=== PATIENT | male | born 1980 | race Caucasian/White ===

== ENCOUNTER 2021-01-19 11:11 | Outpatient (CLI) | payer OTHER, SELFPAY ==
[2021-01-19 11:10] VITALS: BP 149/94; PULSE 98; RESP 20; TEMP 36.9; O2SAT 99; BMI 32.8
[2021-01-19 11:47] VITALS: BP 137/86; PULSE 87; RESP 20; TEMP 36.8; O2SAT 95
[2021-01-19 12:41] VITALS: BP 133/87; PULSE 83; RESP 16; TEMP 36.9; O2SAT 96
== END 2021-01-19 11:12 | disposition home or self-care (01) ==
LOC: OPS 11:16
PROVIDERS: Visit Provider Nurse Practitioner Family
DX: U07.1 COVID-19 (principal)
CPT/HCPCS: 96365

== ENCOUNTER → 2021-09-14 09:43 | Outpatient (BNVA) | payer OTHER, SELFPAY | PROVIDERS: Visit Provider Clinical Nurse Specialist Adult Health | DX: I10 Essential (primary) hypertension (principal); E78.5 Hyperlipidemia, unspecified; R20.0 Anesthesia of skin; R20.2 Paresthesia of skin | CPT/HCPCS: 80053; 80061; 82306; 85025 ==

== ENCOUNTER → 2022-01-31 11:22 | Outpatient (BNVA) | payer OTHER, SELFPAY | PROVIDERS: PCP Clinical Nurse Specialist Adult Health; Visit Provider Clinical Nurse Specialist Adult Health | DX: R20.2 Paresthesia of skin (principal); R35.0 Frequency of micturition; G47.00 Insomnia, unspecified | CPT/HCPCS: 81000; 82306; 82607; 84153 ==

== ENCOUNTER → 2022-02-01 09:13 | Outpatient (BNVA) | payer OTHER, SELFPAY | PROVIDERS: PCP Clinical Nurse Specialist Adult Health; Visit Provider Clinical Nurse Specialist Adult Health | DX: R35.0 Frequency of micturition (principal) | CPT/HCPCS: 81000; 87086 ==

== ENCOUNTER 2022-06-08 08:58 | Observation (INO) | payer OTHER, SELFPAY ==
[2022-06-08] VITALS (26 sets, daily range): BP systolic 115–151; BP diastolic 52–100; PULSE 68–88; RESP 12–19; TEMP 36.2–36.4; O2SAT 93–98
[2022-06-08 10:50] LABS: Basophils # 0.1 10^3/uL (0.0-0.1); Eosinophils # 0.3 10^3/uL (0.0-0.8); Eosinophils % 2.8 %; Hematocrit 51.2 % (42.0-52.0); Lymphocytes # 2.3 10^3/uL (0.8-4.8); Lymphocytes % 24.2 %; Mean Corpuscular HGB Conc 33.2 g/dL (30.0-36.0); Mean Corpuscular Hemoglobin 30.5 pg (28.0-34.0); Mean Corpuscular Volume 91.9 fl (80-94); Monocytes # 0.8 10^3/uL (0.2-0.9); Monocytes % 8.3 %; Neutrophils # 5.92 10^3/uL (1.8-7.7); Neutrophils % 63.4 %; Nucleated Red Blood Cells % 0 %; Platelet Count 308 10^3/cmm (130-400); Red Blood Count 5.57 10^6/uL (4.1-5.3); Red Cell Distribution Width 12.9 % (12.1-15.1); White Blood Count 9.3 10^3/uL (4.0-10.0)
[2022-06-08 11:06] LABS: Alanine Aminotransferase 47 U/L (0-41); Albumin Level 4.5 g/dL (3.5-5.2); Alkaline Phosphatase 103 U/L (40-130); Anion Gap 15.3 (5-19); Aspartate Amino Transferase 23 U/L (0-40); Blood Urea Nitrogen 9 mg/dL (6-20); Calcium 9.1 mg/dL (8.5-10.5); Carbon Dioxide 25 mmol/L (22-29); Chloride 100 mmol/L (98-107); Globulin 3.3 g/dL (1.3-4.6); Glomerular Filtration Rate 81.2 mL/min (90-130); Glucose 100 mg/dL (65-115); Lipase 24 U/L (13-60); Osmolality Calculated 281 mOsm/kg (285-295); Potassium 4.3 mmol/L (3.5-5.1); Sodium 136 mmol/L (136-145); Total Bilirubin 0.8 mg/dL (0.15-1.2); Total Protein 7.8 g/dL (6.6-8.7)
--- NOTE | 2022-06-08 11:16 | CT_ITS ---
WS: [id number] CT ABDOMEN PELVIS TECHNIQUE: Contrast-enhanced CT of the abdomen and pelvis with coronal and sagittal reformatted image s. CLINICAL INFORMATION: RLQ abd pain COMPARISON: None. DLP: 1156.[address] scans at [facility] use at least one of these dose optimization techniques: automated e xposure control; mA and/or kV adjustment per patient size (includes targeted exams where dose is matc hed to clinical indication); or iterative reconstruction. FINDINGS: Diffuse inflammatory stranding and edema about the appendix RIGHT lower quadrant with associated appe ndicolith. Appendicolith measures 5 mm. Findings compatible with acute appendicitis. No perforation o r drainable fluid collections. No free air. A few reactive lymph nodes RIGHT lower quadrant. Diffuse fatty infiltration liver. Normal portal vein and splenic vein. Normal spleen. Fatty atrophy o f the pancreas. Adrenal glands are normal. Normal renal parenchyma enhancement. No hydronephrosis. No rmal GE junction. Lung bases are well aerated. A few calcified granulomas in the lung bases. Normal c aliber abdominal aorta. Indeterminate small enhancing cortical lesion lower pole LEFT kidney measurin g 14 mm. This does not appear entirely cystic and recommend further evaluation with ultrasound. Prostate measures 5.1 cm prominent for a patient this age. Correlation PSA. Sigmoid diverticulosis. No evidence of acute diverticulitis. Fat-containing umbilica l hernia. CT/CT abdomen pelvis w con* [id number] IMPRESSION: 1. Acute appendicitis in the RIGHT lower quadrant with associated appendicolit h. No perforation, free fluid, or abscess. 2. Sigmoid diverticulosis. No evidence of acute diverticulitis. 3. Prominent prostate for patient this age measuring 5.1 CM. Recommend correla tion PSA. 4. Indeterminate small enhancing cortical lesion lower pole LEFT kidney measur ing 14 mm. This does not appear entirely cystic and recommend further evaluatio n with ultrasound. 5. No other acute findings Notified AUTUMN Rizzo at 06/08/2022 1:09 PM.
[2022-06-08 11:18] LABS: Add Urine Microscopic? NO; Charge for UA Resulting for Rev
--- NOTE | 2022-06-08 11:19 | W.ED.ABDPA2 ---
Documented by User: Allie Perdomo [employer]-C 06/08/22 13:10 HPI - Abdominal Pain General: Chief Complaint: Abdominal Pain Stated Complaint: [place] sent for possible appy Time Seen by Provider: 06/08/22 09:22 History of Present Illness: Patient is in today for right lower quadrant abdominal pain he reports that this started yesterday with no injury. He reports that if he is sitting still he has 0 pain but any movement he is hurting a lot. He reports off-and-on nausea no vomiting. He denies any fever. He reports that he often has chills but he does not think that is new. He denies any difficulty urinating, pain with urination, hesitancy, blood in his urine. He denies diarrhea or constipation. He did go to his primary care provider this morning and they felt like he needed to be evaluated further for an appendicitis. He does have his appendix he has never had a renal stone. Associated Symptoms: Denies chills, dysuria, fever(s) and syncope Review of Systems Const: Denies: fever(s), chills or body aches Eyes: Denies: change in vision or blurry vision ENMT: Denies: throat pain Card: Denies: chest pain, palpitations, irregular heart rhythm, lightheadedness or syncope Resp: Denies: dyspnea, productive cough or non-productive cough : Denies: flank pain, dysuria, urinary frequency, urinary urgency or urinary hesitancy Musc: Denies: neck pain or back pain Neuro: Denies: headache(s), numbness in extremities or weakness in extremities PFSH ED PFSH: Medical History HTN (hypertension) with goal to be determined Hyperlipidemia Insomnia Paresthesia Seasonal allergies Vitamin B12 deficiency Vitamin D deficiency Surgical History History of wisdom tooth extraction Family History Father Psychiatric illness Dementia onset 56 years of age. 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 Physical Exam Const: COMMON NORMALS: no acute distress, patient oriented x3 and alert GENERAL APPEARANCE: cooperative ORIENTATION/CONSCIOUSNESS: Yes awake, Yes oriented to person, Yes oriented to place and Yes oriented to time Eye: COMMON NORMALS: Equal, round and reactive pupils present, EOMs intact bilaterally and conjunctivae normal CONJUNCTIVA: Yes conjunctivae normal PUPIL: Yes Equal, round and reactive pupils present Neck/C-Spine: COMMON NORMALS: full ROM Resp: COMMON NORMALS: normal respiratory effort, No retractions, No use of accessory muscles and clear to auscultation bilaterally EFFORT & INSPECTION: Yes symmetric chest movement AUSCULTATION: clear to auscultation bilaterally Cardio: COMMON NORMALS: regular rate, regular rhythm, S1 normal heart sound present and S2 normal heart sound present RATE: regular rate RHYTHM: regular rhythm HEART SOUNDS: S1 normal heart sound present and S2 normal heart sound present GI: COMMON NORMALS: Soft to palpation INSPECTION: Yes normal to inspection PALPATION: Yes Soft to palpation, Yes Tenderness to palpation present (GI) Details: RLQ, No Rebound tenderness present and Yes Other GI palpation findings present (Positive obturator sign) : COMMON NORMALS: Yes no CVA tenderness BLADDER/KIDNEY EXAM: Yes no CVA tenderness Back/Pelvis: COMMON NORMALS: no CVA tenderness Neuro: COMMON NORMALS: patient oriented x3 SENSORIUM/ORIENTATION: Yes alert, Yes oriented to person, Yes oriented to place and Yes oriented to time Psych: COMMON NORMALS: cooperative Course ED course: 1305?radiologist called and advised of acute appendicitis with appendicolith, inflammation without any evidence of fluid or perforation 1306?Dr. Waldrop was paged and advised of appendicitis. He asked that orders be placed for him and he will come by to see the patient Discussed with Dr. Greene at 1310 who agrees to assume care of patient. Vital Signs: Vital signs: Vital Signs Temperature 97.6 F 06/08/22 19:03 Pulse Rate 78 06/08/22 19:03 Respiratory Rate 18 06/08/22 19:03 Blood Pressure 117/78 06/08/22 19:03 Pulse Oximetry 97 06/08/22 19:03 Oxygen Delivery Me thod 06/08/22 19:03 Oxygen Flow Rate 6 06/08/22 18:03 MDM - Abdominal Pain Medical Decision Making Differentials include abdominal pain, appendicitis, renal stone White blood cell count is within normal limits. Patient is afebrile. Negative for CVA tenderness. Exam findings are suspicious for acute appendicitis. CT abdomen pelvis with contrast ordered?shows acute appendicitis. Dr. Waldrop is paged and advised that he would be by to see the patient. I discussed this patient with Dr. Greene who agrees to assume care. Lab Data 06/08/22 10:40 06/08/22 10:40 Labs/Radiology: Radiology Impressions Abdomen/Pelvis CT 06/08/22 11:16 IMPRESSION: 1. Acute appendicitis in the RIGHT lower quadrant with associated appendicolith. No perforation, free fluid, or abscess. 2. Sigmoid diverticulosis. No evidence of acute diverticulitis. 3. Prominent prostate for patient this age measuring 5.1 CM. Recommend correlation PSA. 4. Indeterminate small enhancing cortical lesion lower pole LEFT kidney measuring 14 mm. This does not appear entirely cystic and recommend further evaluation with ultrasound. 5. No other acute findings Notified Allie Perdomo [facility]- at 06/08/2022 1:09 PM. Laboratory Results WBC 9.3 10^3/uL (4.0-10.0) 06/08/22 10:40 RBC 5.57 10^6/uL (4.1-5.3) H 06/08/22 10:40 Hgb 17.0 g/dL (11.7-16.6) H 06/08/22 10:40 Hct 51.2 % (42.0-52.0) 06/08/22 10:40 MCV 91.9 fl (80-94) 06/08/22 10:40 MCH 30.5 pg (28.0-34.0) 06/08/22 10:40 MCHC 33.2 g/dL (30.0-36.0) 06/08/22 10:40 RDW 12.9 % (12.1-15.1) 06/08/22 10:40 Plt Count 308 10^3/cmm (130-400) 06/08/22 10:40 MPV 11.0 fL (7.4-10.4) H 06/08/22 10:40 Neut % (Auto) 63.4 % 06/08/22 10:40 Lymph % (Auto) 24.2 % 06/08/22 10:40 [place] % (Auto) 8.3 % 06/08/22 10:40 Eos % (Auto) 2.8 % 06/08/22 10:40 Baso % (Auto) 1.0 % 06/08/22 10:40 Neut # (Auto) 5.92 10^3/uL (1.8-7.7) 06/08/22 10:40 Lymph # (Auto) 2.3 10^3/uL (0.8-4.8) 06/08/22 10:40 [place] # (Auto) 0.8 10^3/uL (0.2-0.9) 06/08/22 10:40 Eos # (Auto) 0.3 10^3/uL (0.0-0.8) 06/08/22 10:40 Baso # (Auto) 0.1 10^3/uL (0.0-0.1) 06/08/22 10:40 Nucleated RBC % (auto) 0 % 06/08/22 10:40 Nucleated RBCs # 0.0 /100WBC 06/08/22 10:40 Sodium 136 mmol/L (136-145) 06/08/22 10:40 Potassium 4.3 mmol/L (3.5-5.1) 06/08/22 10:40 Chloride 100 mmol/L (98-107) 06/08/22 10:40 Carbon Dioxide 25 mmol/L (22-29) 06/08/22 10:40 Anion Gap 15.3 (5-19) 06/08/22 10:40 BUN 9 mg/dL (6-20) 06/08/22 10:40 Creatinine 1.0 mg/dL (0.7-1.2) 06/08/22 10:40 GFR Calculation 81.2 mL/min (90-130) L 06/08/22 10:40 Glucose 100 mg/dL (65-115) 06/08/22 10:40 Calculated Osmolality 281 mOsm/kg (285-295) L 06/08/22 10:40 Calcium 9.1 mg/dL (8.5-10.5) 06/08/22 10:40 Total Bilirubin 0.8 mg/dL (0.15-1.2) 06/08/22 10:40 AST 23 U/L (0-40) 06/08/22 10:40 ALT 47 U/L (0-41) H 06/08/22 10:40 Alkaline Phosphatase 103 U/L (40-130) 06/08/22 10:40 Total Protein 7.8 g/dL (6.6-8.7) 06/08/22 10:40 Albumin 4.5 g/dL (3.5-5.2) 06/08/22 10:40 Globulin 3.3 g/dL (1.3-4.6) 06/08/22 10:40 Lipase 24 U/L (13-60) 06/08/22 10:40 Urine Color Yellow (Yellow) 06/08/22 11:07 Urine Appearance Clear (CLEAR) 06/08/22 11:07 Urine pH 7 (5-7) 06/08/22 11:07 Ur Specific [place] 1.015 (1.005-1.030) 06/08/22 11:07 Urine Protein Neg (Negative) 06/08/22 11:07 Urine Glucose (UA) Norm (Normal) 06/08/22 11:07 Urine Ketones Negative (Negative) 06/08/22 11:07 Urine Blood Neg (Negative) 06/08/22 11:07 Urine Nitrate Negative (Negative) 06/08/22 11:07 Urine Bilirubin Neg (Negative) 06/08/22 11:07 Urine Urobilinogen Neg mg/dL (Negative) 06/08/22 11:07 Ur Leukocyte Esterase Negative (Negative) 06/08/22 11:07 Discharge Plan Discharge Patient Disposition: Admitted As Inpatient Admit Provider: Joaquin Waldrop Clinical Impression: Acute appendicitis Condition: Stable Discharge Diet: Advance as tolerated Discharge Activity: Resume usual activity Sign Out Sign Out Data: Patient Sign Out occurred on 06/08/22 at 13:37. Patient's care was discussed, and care was transferred from to J Carlos Greene DO. Coding Level of Care Code ED [employer] Operator for [employer] Nicholson Documented by User: J Carlos Greene DO 06/13/22 07:35 HPI - Abdominal Pain General: Chief Complaint: Abdominal Pain Stated Complaint: [place] sent for possible appy Time Seen by Provider: 06/08/22 09:22 [facility] ED PFSH: Medical History HTN (hypertension) with goal to be determined Hyperlipidemia Insomnia Paresthesia Seasonal allergies Vitamin B12 deficiency Vitamin D deficiency Surgical History History of wisdom tooth extraction Family History Father Psychiatric illness Dementia onset 56 years of age. 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 Patient is afebrile. Negative for CVA tenderness. Exam findings are suspicious for acute appendicitis. CT abdomen pelvis with contrast ordered?shows acute appendicitis. Dr. Waldrop is paged and advised that he would be by to see the patient. I discussed this patient with Dr. Greene who agrees to assume care. Patient care handoff received from Allie Perdomo continuation of ED evaluation. I personally saw and evaluated patient and reperformed rhoades portions of E/M. Patient seen and examined labs imaging reviewed patient has acute appendicitis discussed Dr. Waldrop he will take the patient to the OR for appendectomy. Medical Records I reviewed the patient's medical records. Lab Data I reviewed the patient's lab results. 06/08/22 10:40 06/08/22 10:40 Labs/Radiology: Radiology Impressions Abdomen/Pelvis CT 06/08/22 11:16 IMPRESSION: 1. Acute appendicitis in the RIGHT lower quadrant with associated appendicolith. No perforation, free fluid, or abscess. 2. Sigmoid diverticulosis. No evidence of acute diverticulitis. 3. Prominent prostate for patient this age measuring 5.1 CM. Recommend correlation PSA. 4. Indeterminate small enhancing cortical lesion lower pole LEFT kidney measuring 14 mm. This does not appear entirely cystic and recommend further evaluation with ultrasound. 5. No other acute findings Notified Allie Perdomo, [facility]- at 06/08/2022 1:09 PM. Laboratory Results WBC 9.3 10^3/uL (4.0-10.0) 06/08/22 10:40 RBC 5.57 10^6/uL (4.1-5.3) H 06/08/22 10:40 Hgb 17.0 g/dL (11.7-16.6) H 06/08/22 10:40 Hct 51.2 % (42.0-52.0) 06/08/22 10:40 MCV 91.9 fl (80-94) 06/08/22 10:40 MCH 30.5 pg (28.0-34.0) 06/08/22 10:40 MCHC 33.2 g/dL (30.0-36.0) 06/08/22 10:40 RDW 12.9 % (12.1-15.1) 06/08/22 10:40 Plt Count 308 10^3/cmm (130-400) 06/08/22 10:40 MPV 11.0 fL (7.4-10.4) H 06/08/22 10:40 Neut % (Auto) 63.4 % 06/08/22 10:40 Lymph % (Auto) 24.2 % 06/08/22 10:40 [place] % (Auto) 8.3 % 06/08/22 10:40 Eos % (Auto) 2.8 % 06/08/22 10:40 Baso % (Auto) 1.0 % 06/08/22 10:40 Neut # (Auto) 5.92 10^3/uL (1.8-7.7) 06/08/22 10:40 Lymph # (Auto) 2.3 10^3/uL (0.8-4.8) 06/08/22 10:40 [place] # (Auto) 0.8 10^3/uL (0.2-0.9) 06/08/22 10:40 Eos # (Auto) 0.3 10^3/uL (0.0-0.8) 06/08/22 10:40 Baso # (Auto) 0.1 10^3/uL (0.0-0.1) 06/08/22 10:40 Nucleated RBC % (auto) 0 % 06/08/22 10:40 Nucleated RBCs # 0.0 /100WBC 06/08/22 10:40 Sodium 136 mmol/L (136-145) 06/08/22 10:40 Potassium 4.3 mmol/L (3.5-5.1) 06/08/22 10:40 Chloride 100 mmol/L (98-107) 06/08/22 10:40 Carbon Dioxide 25 mmol/L (22-29) 06/08/22 10:40 Anion Gap 15.3 (5-19) 06/08/22 10:40 BUN 9 mg/dL (6-20) 06/08/22 10:40 Creatinine 1.0 mg/dL (0.7-1.2) 06/08/22 10:40 GFR Calculation 81.2 mL/min (90-130) L 06/08/22 10:40 Glucose 100 mg/dL (65-115) 06/08/22 10:40 Calculated Osmolality 281 mOsm/kg (285-295) L 06/08/22 10:40 Calcium 9.1 mg/dL (8.5-10.5) 06/08/22 10:40 Total Bilirubin 0.8 mg/dL (0.15-1.2) 06/08/22 10:40 AST 23 U/L (0-40) 06/08/22 10:40 ALT 47 U/L (0-41) H 06/08/22 10:40 Alkaline Phosphatase 103 U/L (40-130) 06/08/22 10:40 Total Protein 7.8 g/dL (6.6-8.7) 06/08/22 10:40 Albumin 4.5 g/dL (3.5-5.2) 06/08/22 10:40 Globulin 3.3 g/dL (1.3-4.6) 06/08/22 10:40 Lipase 24 U/L (13-60) 06/08/22 10:40 Urine Color Yellow (Yellow) 06/08/22 11:07 Urine Appearance Clear (CLEAR) 06/08/22 11:07 Urine pH 7 (5-7) 06/08/22 11:07 Ur Specific [place] 1.015 (1.005-1.030) 06/08/22 11:07 Urine Protein Neg (Negative) 06/08/22 11:07 Urine Glucose (UA) Norm (Normal) 06/08/22 11:07 Urine Ketones Negative (Negative) 06/08/22 11:07 Urine Blood Neg (Negative) 06/08/22 11:07 Urine Nitrate Negative (Negative) 06/08/22 11:07 Urine Bilirubin Neg (Negative) 06/08/22 11:07 Urine Urobilinogen Neg mg/dL (Negative) 06/08/22 11:07 Ur Leukocyte Esterase Negative (Negative) 06/08/22 11:07 Discharge Plan Discharge Patient Disposition: Admitted As Inpatient Admit Provider: Joaquin Waldrop Clinical Impression: Acute appendicitis Condition: Stable Discharge Diet: Advance as tolerated Discharge Activity: Resume usual activity Sign Out Sign Out Data: Patient Sign Out occurred on 06/08/22 at 13:37. Patient's care was discussed, and care was transferred from to J Carlos Greene DO. Coding Level of Care Code ED [employer] Operator for [employer]olson
[2022-06-08] MEDS: iohexol 350 mg/mL 500 mL Btl (per mL) IV (11:20)
[2022-06-08 11:24] LABS: Blood Urine Neg (Negative); Glucose Urine UA Norm (Normal); Ketones Urine Negative (Negative); Protein Urine Neg (Negative); Specific Gravity, Urine 1.015 (1.005-1.030); Urine Appearance Clear (CLEAR); Urine Color Yellow (Yellow); pH Urine 7 (5-7)
[2022-06-08 11:25] LABS: Bilirubin Urine Neg (Negative); Leukocyte Esterase Urine Negative (Negative); Nitrate Urine Negative (Negative); Urobilinogen Urine Neg (Negative)
--- NOTE | 2022-06-08 16:22 | ANES.PREANE2 ---
Pre-Anesthetic Assessment Height/Weight: Height 1.83 m Weight 113.398 kg Temp Pulse Resp BP Pulse Ox O2 Del Method 97.6 F 83 16 151/100 97 06/08/22 15:23 06/08/22 15:23 06/08/22 15:23 06/08/22 15:23 06/08/22 15:23 06/08/22 15:23 Operation Date: 06/08/22 16:45 Proposed Procedures p Laparoscopic Appendectomy(Not Applicable) - Joaquin Waldrop DO Familial anesthetic complications: None Was Beta Sruthi taken within 24 hours: N/A Was Clonidine taken within 24 hours: N/A Last intake: Intake Last Liquid Date 06/08/22 Last Liquid Time 07:30 Last Solid Date 06/07/22 Last Solid Time 12:00 Social Alcohol (6-12 drinks a week) and No tobacco Exam alert, oriented x 3, clear to auscultation bilaterally and regular rate & rhythm Airway Submandibular: within normal limits Cervical ROM: within normal limits Mallampati: Class III Dentition: full History/ROS No significant history except as noted and No significant complaints Pulmonary Asthma and Sleep Apnea CV/HEM Arrythmia and Hypertension None reported Hepatic None reported GI None reported Metabolic Hyperlipidemia [facility] None reported Neuropsych Neuropathy Anesthetic Plan ASA status: 2 Anesthesia: Anesthesia Evaluation and General Risk of > 500 ml blood loss (7ml/kg in children): No Medications/Allergies Home Medications Medication Instructions Recorded Confirmed Last Taken Type fluticasone propionate 45 2 puff inhalation BID #12 grams 01/19/21 06/08/22 Unknown Rx mcg-salmeterol 21 mcg/actuation HFA inhaler (Advair HFA) losartan 50 mg tablet 50 mg PO DAILY 01/19/21 06/08/22 06/07/22 History cholecalciferol (vitamin D3) 50 50 mcg PO DAILY 01/31/22 06/08/22 06/07/22 History mcg (2,000 unit) capsule levocetirizine 5 mg tablet (Xyzal) 5 mg PO DAILY 01/31/22 06/08/22 06/07/22 History folic acid 1 mg tablet 1 mg PO DAILY 02/13/22 06/08/22 06/07/22 History mecobalamin (vitamin B12) 5,000 1,000 mcg PO DAILY 02/13/22 06/08/22 06/07/22 History mcg disintegrating tablet Allergies Allergy/AdvReac Type Severity Reaction Status Date / Time No Known Allergies Allergy Verified 06/08/22 11:26 [facility] Anesthesia Medical History HTN (hypertension) with goal to be determined Hyperlipidemia Insomnia Paresthesia Seasonal allergies Vitamin B12 deficiency Vitamin D deficiency Surgical History History of wisdom tooth extraction Family History Father Psychiatric illness Dementia onset 58 years of age. 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 Data Anesthesia 06/08/22 10:40 06/08/22 10:40 Short CBC 06/08/22 Range/Units 10:40 WBC 9.3 (4.0-10.0) 10^3/uL Hgb 17.0 H (11.7-16.6) g/dL Hct 51.2 (42.0-52.0) % MCV 91.9 (80-94) fl Plt Count 308 (130-400) 10^3/cmm Neut % (Auto) 63.4 % Neut # (Auto) 5.92 (1.8-7.7) 10^3/uL BMP 06/08/22 10:40 Sodium 136 Potassium 4.3 Chloride 100 Carbon Dioxide 25 BUN 9 Creatinine 1.0 Glucose 100 Calcium 9.1 Liver Function 06/08/22 Range/Units 10:40 Total Bilirubin 0.8 (0.15-1.2) mg/dL AST 23 (0-40) U/L ALT 47 H (0-41) U/L Alkaline Phosphatase 103 (40-130) U/L Albumin 4.5 (3.5-5.2) g/dL Urine 06/08/22 Range/Units 11:07 Urine Color Yellow (Yellow) Urine Appearance Clear (CLEAR) Urine pH 7 (5-7) Ur Specific [place] 1.015 (1.005-1.030) Urine Protein Neg (Negative) Urine Glucose (UA) Norm (Normal) Urine Ketones Negative (Negative) Urine Nitrate Negative (Negative) Urine Bilirubin Neg (Negative) Ur Leukocyte Esterase Negative (Negative) Cardiac Studies: No Data to Display
--- NOTE | 2022-06-08 16:52 | P.HP_ITS ---
Providers/Chief Complaint Admitting Physician: Joaquin Waldrop DO Primary Care Provider: Brandon Urban Chief Complaint: [place] sent for possible appy History of Present Illness Brandon Cade is a 42 year old male who presents to the ER with a 1 day history of right lower quadrant abdominal pain. He reports nausea but denies any emesis. Denies any fever or chills. CT shows acute appendicitis. Medications/Allergies Home Medications Medication Instructions Recorded Confirmed Last Taken Type fluticasone propionate 45 2 puff inhalation BID #12 grams 01/19/21 06/08/22 Unknown Rx mcg-salmeterol 21 mcg/actuation HFA inhaler (Advair HFA) losartan 50 mg tablet 50 mg PO DAILY 01/19/21 06/08/22 06/07/22 History cholecalciferol (vitamin D3) 50 50 mcg PO DAILY 01/31/22 06/08/22 06/07/22 History mcg (2,000 unit) capsule levocetirizine 5 mg tablet (Xyzal) 5 mg PO DAILY 01/31/22 06/08/22 06/07/22 History folic acid 1 mg tablet 1 mg PO DAILY 02/13/22 06/08/22 06/07/22 History mecobalamin (vitamin B12) 5,000 1,000 mcg PO DAILY 02/13/22 06/08/22 06/07/22 History mcg disintegrating tablet Allergies Allergy/AdvReac Type Severity Reaction Status Date / Time No Known Allergies Allergy Verified 06/08/22 11:26 PFSH Acute PFSH: Medical History HTN (hypertension) with goal to be determined Hyperlipidemia Insomnia Paresthesia Seasonal allergies Vitamin B12 deficiency Vitamin D deficiency Surgical History History of wisdom tooth extraction Family History Father Psychiatric illness Dementia onset 58 years of age. 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 Ears : Pinnae and external canal are normal. Hearing is normal. Eyes : PERRLA, Sclera and injection are normal. No conjunctival discharge. Nose : Mucous membranes are without erythema. Throat : buccal mucosa is normal, gums are without significant recession or hypertrophy. Lungs : Equal chest rise bilaterally, no use of accessory muscles, trachea is midline. Cor : Rate and rhythm are normal. Abdomen : Soft, ND, tender right lower quadrant, no g/r/m Extremities : No edema, no cyanosis or clubbing, dorsalis pedis pulses are present bilaterally, non-tender to palpation of calves. Upper extremities are normal bilaterally. Back : non-tender to palpation, no CVA tenderness. Neuro : CN II - XII intact, Upper and lower extremities have equal and full strength Data 06/08/22 10:40 06/08/22 10:40 A&P Assessment and plan (1) Acute appendicitis: Plan Laparoscopic Appendectomy The risks and benefits of the procedure, including but not limited to, bleeding, infection, scar, numbness, pain, damage to surrounding structures, conversion to an open procedure, were explained to the patient. He is understanding of the risks and wishes to proceed. Attestations Medical Necessity Statement*: Patient requires at least 1 night in the hospital for IV antibiotics and recovery after laparoscopic appendectomy Coding Level of Care Code Acute Code for [facility] Diagnoses Acute appendicitis K35.80
[2022-06-08] MEDS: piperacillin-tazobactam 3.375 GM in sodium chloride 0.9% (plus) 50 ML IV (16:56)
[2022-06-08] MEDS: lidocaine-epi 2% 20 mL INJ INJECTION (17:23)
--- NOTE | 2022-06-08 17:42 | P.OP_ITS ---
Operative Report Date of procedure: June 08, 2022 Pre-op diagnosis: Preop Diagnosis Acute Appendicitis Post-op diagnosis: same Procedure done: Laparoscopic appendectomy Implants: None Specimens removed/disposition: Appendix Surgeon: Dr. Joaquin Waldrop DO Anesthesia: General Estimated blood loss (mL): 5 Complications: None apparent Brief History: Is a very pleasant 42-year-old gentleman who presents to the ER with acute appendicitis. Laparoscopic appendectomy was indicated. The risk and benefits were explained and documented. Procedure: Patient was wheeled into the operative room and placed on the OR table in a supine position. Abdomen was inspected prepped and draped in usual sterile fashion. Time-out was performed and all present were in agreement. A 15 blade scalp was used to make a stab incision in the left upper quadrant and intra- abdominal insufflation was achieved using a Veress needle. After localizing the tissue incisions were made and a 12 millimeter trocar was placed into the umbilicus as well as a 5mm in the right lower quadrant and a 5 mm in the left lower quadrant . The appendix was identified and was mildly inflamed. I used the Voyant to ligate the mesoappendix at the base. I then used 2 PDS endo-loops to snare the base of the appendix. I then used the Voyant to ligate the appendix distally. The appendix was removed from the abdomen using an Endo- Catch bag through the umbilical incision. I examined the abdomen and no further pathology was identified. Hemostasis was noted. I then closed the umbilical site with a Kyle-Brea and 0 Vicryl suture in a figure of 8 fashion. All ports removed. Skin was washed and dried. Inferior incisions were closed with 4 O Monocryl in a subcuticular interrupted fashion. Skin glue was applied. Umbilical incision was closed with 3-0 nylon in interrupted fashion. Sterile bandage was applied. Patient tolerated the procedure well.
--- NOTE | 2022-06-08 17:50 | PM.DCS ---
Discharge Providers Date of Admission: 06/08/22 16:42 Date of Discharge: June 08, 2022 Attending Provider at Admission: Joaquin Waldrop DO Attending Provider at Discharge: Joaquin Waldrop DO Primary Care Provider: Brandon Urban Diagnoses at Discharge Discharge Diagnosis (1) Acute appendicitis: Status: Acute Reason for Visit Reason for Visit: [place] sent for possible appy Hospital Course Hospital Course 42-year-old male patient came in with acute appendicitis. He underwent an uneventful laparoscopic appendectomy and was discharged home in good condition. Physical Exam Narrative: General : Patient is well developed , no acute distress, oriented x3 Head : Normal cephalic, a-traumatic. Ears : Pinnae and external canal are normal. Hearing is normal. Eyes : PERRLA, Sclera and injection are normal. No conjunctival discharge. Nose : Mucous membranes are without erythema. Throat : buccal mucosa is normal, gums are without significant recession or hypertrophy. Lungs : Equal chest rise bilaterally, no use of accessory muscles, trachea is midline. Cor : Rate and rhythm are normal. Abdomen : Soft, ND, tender palpation right lower quadrant, no g/r/m Extremities : No edema, no cyanosis or clubbing, dorsalis pedis pulses are present bilaterally, non-tender to palpation of calves. Upper extremities are normal bilaterally. Back : non-tender to palpation, no CVA tenderness. Neuro : CN II - XII intact, Upper and lower extremities have equal and full strength Discharge Data Studies Completed and Pending Completed Studies During Hospitalization Category Date Time Status CT abdomen pelvis w con* [id number] Stat Cat Scan 06/08/22 11:16 Completed Pending at discharge Category Date Time Status Pathology: Surgical [PTH] Routine Pth 06/08/22 17:46 Ordered Radiology Impressions Abdomen/Pelvis CT 06/08/22 11:16 IMPRESSION: 1. Acute appendicitis in the RIGHT lower quadrant with associated appendicolith. No perforation, free fluid, or abscess. 2. Sigmoid diverticulosis. No evidence of acute diverticulitis. 3. Prominent prostate for patient this age measuring 5.1 CM. Recommend correlation PSA. 4. Indeterminate small enhancing cortical lesion lower pole LEFT kidney measuring 14 mm. This does not appear entirely cystic and recommend further evaluation with ultrasound. 5. No other acute findings Notified Allie RADHA Perdomo-Collette at 06/08/2022 1:09 PM. Laboratory Results WBC 9.3 10^3/uL (4.0-10.0) 06/08/22 10:40 RBC 5.57 10^6/uL (4.1-5.3) H 06/08/22 10:40 Hgb 17.0 g/dL (11.7-16.6) H 06/08/22 10:40 Hct 51.2 % (42.0-52.0) 06/08/22 10:40 MCV 91.9 fl (80-94) 06/08/22 10:40 MCH 30.5 pg (28.0-34.0) 06/08/22 10:40 MCHC 33.2 g/dL (30.0-36.0) 06/08/22 10:40 RDW 12.9 % (12.1-15.1) 06/08/22 10:40 Plt Count 308 10^3/cmm (130-400) 06/08/22 10:40 MPV 11.0 fL (7.4-10.4) H 06/08/22 10:40 Neut % (Auto) 63.4 % 06/08/22 10:40 Lymph % (Auto) 24.2 % 06/08/22 10:40 [place] % (Auto) 8.3 % 06/08/22 10:40 Eos % (Auto) 2.8 % 06/08/22 10:40 Baso % (Auto) 1.0 % 06/08/22 10:40 Neut # (Auto) 5.92 10^3/uL (1.8-7.7) 06/08/22 10:40 Lymph # (Auto) 2.3 10^3/uL (0.8-4.8) 06/08/22 10:40 [place] # (Auto) 0.8 10^3/uL (0.2-0.9) 06/08/22 10:40 Eos # (Auto) 0.3 10^3/uL (0.0-0.8) 06/08/22 10:40 Baso # (Auto) 0.1 10^3/uL (0.0-0.1) 06/08/22 10:40 Nucleated RBC % (auto) 0 % 06/08/22 10:40 Nucleated RBCs # 0.0 /100WBC 06/08/22 10:40 Sodium 136 mmol/L (136-145) 06/08/22 10:40 Potassium 4.3 mmol/L (3.5-5.1) 06/08/22 10:40 Chloride 100 mmol/L (98-107) 06/08/22 10:40 Carbon Dioxide 25 mmol/L (22-29) 06/08/22 10:40 Anion Gap 15.3 (5-19) 06/08/22 10:40 BUN 9 mg/dL (6-20) 06/08/22 10:40 Creatinine 1.0 mg/dL (0.7-1.2) 06/08/22 10:40 GFR Calculation 81.2 mL/min (90-130) L 06/08/22 10:40 Glucose 100 mg/dL (65-115) 06/08/22 10:40 Calculated Osmolality 281 mOsm/kg (285-295) L 06/08/22 10:40 Calcium 9.1 mg/dL (8.5-10.5) 06/08/22 10:40 Total Bilirubin 0.8 mg/dL (0.15-1.2) 06/08/22 10:40 AST 23 U/L (0-40) 06/08/22 10:40 ALT 47 U/L (0-41) H 06/08/22 10:40 Alkaline Phosphatase 103 U/L (40-130) 06/08/22 10:40 Total Protein 7.8 g/dL (6.6-8.7) 06/08/22 10:40 Albumin 4.5 g/dL (3.5-5.2) 06/08/22 10:40 Globulin 3.3 g/dL (1.3-4.6) 06/08/22 10:40 Lipase 24 U/L (13-60) 06/08/22 10:40 Urine Color Yellow (Yellow) 06/08/22 11:07 Urine Appearance Clear (CLEAR) 06/08/22 11:07 Urine pH 7 (5-7) 06/08/22 11:07 Ur Specific [place] 1.015 (1.005-1.030) 06/08/22 11:07 Urine Protein Neg (Negative) 06/08/22 11:07 Urine Glucose (UA) Norm (Normal) 06/08/22 11:07 Urine Ketones Negative (Negative) 06/08/22 11:07 Urine Blood Neg (Negative) 06/08/22 11:07 Urine Nitrate Negative (Negative) 06/08/22 11:07 Urine Bilirubin Neg (Negative) 06/08/22 11:07 Urine Urobilinogen Neg mg/dL (Negative) 06/08/22 11:07 Ur Leukocyte Esterase Negative (Negative) 06/08/22 11:07 Procedures Performed Laparoscopic appendectomy Vitals Last Vital Signs Temp 97.6 F 06/08/22 15:23 Pulse 83 06/08/22 15:23 Resp 16 06/08/22 15:23 BP 151/100 06/08/22 15:23 Pulse Ox 97 06/08/22 15:23 O2 Del Method 06/08/22 15:23 Discharge Plan Discharge Patient Disposition: Home Condition: Stable Prescriptions: New hydrocodone-acetaminophen 7.5-325 mg tablet 1 tab PO Q6H PRN (Reason: pain) Qty: 20 0RF DOK 100 mg capsule 100 mg PO BID Qty: 20 0RF amoxicillin-pot clavulanate 875-125 mg tablet 1 tab PO BID 14 Days Qty: 28 0RF Continued losartan 50 mg tablet 50 mg PO DAILY Advair HFA 45-21 mcg/actuation HFA aerosol inhaler 2 puff inhalation BID Qty: 12 0RF cholecalciferol (vitamin D3) 50 mcg (2,000 unit) capsule 50 mcg PO DAILY levocetirizine [Xyzal] 5 mg tablet 5 mg PO DAILY mecobalamin (vitamin B12) 5,000 mcg tablet,disintegrating 1,000 mcg PO DAILY folic acid 1 mg tablet 1 mg PO DAILY Discharge Orders: Discharge Order (Routine); Ordered 06/08/22 Ordered By: Joaquin Waldrop Referrals: Joaquin Waldrop DO [Physician] - 2 weeks Brandon Urban NP [Primary Care Provider] - 4-7 days Discharge Diet: Advance as tolerated Discharge Activity: Resume usual activity Patient Instructions: Opioid Safety Activity Restrictions/Additional Instructions: Do not soak incisions underwater for 2 weeks. Shower daily. Discharge Attestations Time Spent in Discharge Care*: less than 30 min Quality Metrics Clinical Quality Measures [ No reported AMI, CVA or VTE this stay] Coding Level of Care Code Acute Code for [facility] Diagnoses Acute appendicitis K35.80
--- NOTE | 2022-06-08 19:00 | ANE.PACU2 ---
Inpatient post-anesthesia follow up: Airway intact: Yes Vital signs: Temperature 97.6 F Pulse Rate 78 Respiratory Rate 18 Blood Pressure 117/78 Pulse Oximetry 97 Oxygen Delivery Me thod Room Air Oxygen Flow Rate 6 Fraction of Inspir ed Oxygen Hydration adequate: Yes Nausea and vomiting: No Pain level: 1 Mental status: Baseline
[2022-06-08] MEDS: HYDROcodone-acetaminophen 7.5-325 mg Tablet 1 TAB PO (19:05)
== END 2022-06-08 18:54 | disposition home or self-care (01) ==
LOC: ER 14:41 → OR 15:32 → MEDSURG 16:43
PROVIDERS: Nurse Practitioner Family; Admitting Provider Surgery; Emergency Provider Family Medicine; PCP Clinical Nurse Specialist Adult Health; Visit Provider Surgery
PROC: 0DTJ4ZZ Resection of Appendix, Percutaneous Endoscopic Approach (ICD-10-PCS; CPT 44970; principal; 2022-06-08 16:45)
DX: K35.80 Unspecified acute appendicitis (principal)
CPT/HCPCS: 44970; 74177; 80053; 81003; 83690; 85025; 88304; 99285; G0378; J0131; J0330; J1100; J1170; J1885; J2250; J2405; J2543; J2704; J2710; J3010; J3490; Q9967

== ENCOUNTER 2022-08-04 05:58 | Outpatient (CLI) | payer OTHER, SELFPAY ==
--- NOTE | 2022-08-04 06:15 | US_ITS ---
WS: [id number] RENAL ULTRASOUND HISTORY: abnormal CT with 14 mm cortical lesion COMPARISON: CT 06/08/2022 TECHNIQUE: 2-D and color Doppler imaging of the kidney submitted. Right kidney: 13.2 cm x 5.4 cm x 5.9 cm. Cortex: 1.0 cm Normal echogenicity with no hydronephrosis or mass. Left kidney: 11.3 cm x 6.7 cm x 4.5 cm. Cortex: 0.9 cm Normal echogenicity and size. Exophytic hypoechoic mass from the lower pole measures 1.3 x 1.1 x 1.0 cm. Corresponds to the mass noted on recent PET/CT. Due to its small size this is very difficult to c ompletely characterize as a cyst. Aorta: Normal. Urinary Bladder: Normal distention. US/US renal BI* [id number] IMPRESSION: 1. Indeterminate for benign cyst lower pole LEFT kidney with a maximum diamete r 1.3 cm. Recommend six-month ultrasound follow-up evaluation to document ian nued stability. 2. No hydronephrosis.
== END 2022-08-04 05:59 | disposition home or self-care (01) ==
LOC: RAD 05:59
PROVIDERS: PCP Clinical Nurse Specialist Adult Health; Visit Provider Clinical Nurse Specialist Adult Health
DX: N28.9 Disorder of kidney and ureter, unspecified (principal)
CPT/HCPCS: 76770

== ENCOUNTER 2023-01-12 16:39 | Outpatient (CLI) | payer OTHER, SELFPAY ==
--- NOTE | 2023-01-12 17:00 | US_ITS ---
WS: [email or web address] RENAL ULTRASOUND HISTORY: left renal abnormality COMPARISON: 08/04/2022 TECHNIQUE: 2-D and color Doppler imaging of the kidney submitted. Right kidney: 12.6 cm x 6.1 cm x 7.4 cm. Cortex: 1.5 cm Normal echogenicity with no hydronephrosis or mass. Left kidney: 11.4 cm x 4.4 cm x 6.1 cm. Cortex: 1.4 cm Normal size kidney. No hydronephrosis. Cystic mass in the inferior pole of the LEFT kidney is reident ified measuring 1.2 x 1.3 x 1.2 cm. This is an exophytic cyst and corresponds to the previously descr ibed mass seen on prior imaging studies. No increase in size since the prior study. Appears more cyst ic today. Aorta: Normal. Urinary Bladder: Normal distention. IMPRESSION: 1. Exophytic mass with a maximal diameter 1.3 cm lower pole LEFT kidney appears more cystic today. Be nign LEFT renal cyst. 2. No hydronephrosis.
== END 2023-01-12 16:40 | disposition home or self-care (01) ==
PROVIDERS: PCP Clinical Nurse Specialist Adult Health; Visit Provider Clinical Nurse Specialist Adult Health
DX: N28.89 Other specified disorders of kidney and ureter (principal); N28.1 Cyst of kidney, acquired
CPT/HCPCS: 76770

== ENCOUNTER → 2023-07-25 08:55 | Outpatient (BNVA) | payer BC, SELFPAY | PROVIDERS: PCP Clinical Nurse Specialist Adult Health; Visit Provider Clinical Nurse Specialist Adult Health | DX: E53.8 Deficiency of other specified B group vitamins (principal); M79.671 Pain in right foot; I10 Essential (primary) hypertension; E55.9 Vitamin D deficiency, unspecified | CPT/HCPCS: 80053; 80061; 82306; 82607; 83036; 84550; 85025 ==

== ENCOUNTER 2023-08-16 06:43 | Outpatient (CLI) | payer BC, SELFPAY ==
--- NOTE | 2023-08-16 07:00 | US_ITS ---
WS: [id number] RENAL ULTRASOUND HISTORY: follow up on renal cyst COMPARISON: 01/12/2023 TECHNIQUE: 2-D and color Doppler imaging of the kidney submitted. Right kidney: 12.4 cm x 7.2 cm x 5.4 cm. Cortex: 1.2 cm Normal echogenicity with no hydronephrosis or mass. Left kidney: 11.4 cm x 5.7 cm x 4.8 cm. Cortex: 1.5 cm Normal size kidney. No hydronephrosis. Exophytic cortical cyst from the lower pole measures 1.4 x 1.2 x 1.4 cm. Aorta: Normal. Urinary Bladder: Normal distention. IMPRESSION: 1. No hydronephrosis or solid renal mass. 2. Simple exophytic cyst lower pole LEFT kidney with very slight increase in size since 01/12/2023. T his cyst appears more cystic than on prior studies, this is probably due to the slight increase in si ze and more optimal evaluation.
== END 2023-08-16 06:44 | disposition home or self-care (01) ==
LOC: RAD 06:43
PROVIDERS: PCP Clinical Nurse Specialist Adult Health; Visit Provider Clinical Nurse Specialist Adult Health
DX: N28.9 Disorder of kidney and ureter, unspecified (principal); N28.1 Cyst of kidney, acquired
CPT/HCPCS: 76770

== ENCOUNTER 2024-09-10 16:09 | Outpatient (CLI) | payer BC, SELFPAY ==
--- NOTE | 2024-09-10 16:30 | USR_ITS ---
PROCEDURE INFORMATION: Exam: US Retroperitoneal, Complete, Kidneys and Bladder Exam date and time: 09/10/2024 4:34 PM Age: 44 years old Clinical indication: Condition or disease; Kidney or ureter condition; Other: Disorder of kidney and ureter, unspecified; Additional info: N28.9 - disorder of kidney and ureter, unspecified, 1 year follow up TECHNIQUE: Imaging protocol: Real-time ultrasound of the retroperitoneum with image documentation. Complete exam focused on the bilateral kidneys and urinary bladder. COMPARISON: US renal BI* [id number] 08/16/2023 6:52 AM FINDINGS: Right kidney: Normal. No stones. No hydronephrosis. Left kidney: Normal. Stable small simple/anechoic exophytic left renal cortical cyst measuring about 1.4 cm. No stones. No hydronephrosis. Urinary bladder: Unremarkable. Mildly prominent prostate. US/US renal BI* [id number] IMPRESSION: 1. No evidence of hydronephrosis or renal stone disease on either side. 2. Stable simple 1.4 cm left renal cortical cyst. 3. Mildly prominent prostate.
== END 2024-09-10 16:10 | disposition home or self-care (01) ==
LOC: RAD 16:09
PROVIDERS: PCP Clinical Nurse Specialist Adult Health; Visit Provider Clinical Nurse Specialist Adult Health
DX: N28.9 Disorder of kidney and ureter, unspecified (principal); N28.1 Cyst of kidney, acquired; R93.89 Abnormal findings on diagnostic imaging of other specified body structures
CPT/HCPCS: 76770

== ENCOUNTER → 2024-09-18 09:24 | Outpatient (BNVA) | payer BC, SELFPAY | PROVIDERS: PCP Clinical Nurse Specialist Adult Health; Visit Provider Clinical Nurse Specialist Adult Health | DX: I10 Essential (primary) hypertension (principal) | CPT/HCPCS: 80053; 80061; 84443; 84550; 85025 ==